=== PATIENT | male | born 1975 | race Caucasian/White ===

== ENCOUNTER 2017-01-04 11:21 | Emergency (ER) | payer OTHER ==
[~2017-01-04] VITALS: Ht 180.3 cm; Wt 92.1 kg
[~2017-01-04 11:21] MED LIST: AUGMENTIN500 MG PO; NAPROSYN500 MG PO; ULTRACET1 TABLET PO
[2017-01-04] MEDS ORDERED: FLEXERIL10 MG PO (14:30)
[2017-01-04] MEDS ORDERED: NAPROSYN500 MG PO (14:30)
[2017-01-04 14:47] VITALS: BP 132/86
== END 2017-01-04 14:47 | disposition home or self-care (01) ==
LOC: EME 11:21
DX: S50.812A Abrasion of left forearm, initial encounter (principal); W22.11XA Striking against or struck by driver side automobile airbag, initial encounter; V44.5XXA Car driver injured in collision with heavy transport vehicle or bus in traffic accident, initial encounter
CPT/HCPCS: 99281; 99283

== ENCOUNTER 2018-02-09 16:50 | Emergency (ER) | payer OTHER ==
[~2018-02-09] VITALS: Ht 180.3 cm; Wt 86.0 kg
[~2018-02-09 16:50] MED LIST changes: +FLEXERIL10 MG PO
[2018-02-09] MEDS ORDERED: MOTRIN800 MG PO (18:41)
[2018-02-09 19:15] VITALS: BP 116/79
== END 2018-02-09 19:10 | disposition home or self-care (01) ==
LOC: EME 16:50
DX: S20.212A Contusion of left front wall of thorax, initial encounter (principal); S09.90XA Unspecified injury of head, initial encounter; M54.9 Dorsalgia, unspecified; H92.02 Otalgia, left ear; Y09 Assault by unspecified means
CPT/HCPCS: 70450; 71100; 99281; 99284